=== PATIENT | female | born 1975 | race Two or more races ===

== ENCOUNTER 2016-10-16 15:46 | Emergency (ER) | payer OTHER ==
[~2016-10-16] VITALS: Ht 152.4 cm; Wt 56.7 kg
[2016-10-16] MEDS ORDERED: NKM (16:03)
[2016-10-16 16:11] VITALS: BP 139/79
[2016-10-16] MEDS ORDERED: Ketorolac 30mg Inj IV ONE (16:30)
[2016-10-16 16:50] LABS: BASOPHILS % (AUTO) 0.9 % (0.0-2.0); EOSINOPHILS % (AUTO) 0.3 % (0.0-3.0); LYMPHOCYTES % (AUTO) 13.3 % (20.0-45.0); MEAN CORPUSCULAR HEMOGLOBIN 29.7 PG (27.0-31.0); MEAN CORPUSCULAR HGB CONC 34.4 G/DL (32.0-36.0); MEAN CORPUSCULAR VOLUME 86 FL (80-99); MEAN PLATELET VOLUME 7.1 FL (6.5-10.1); MONOCYTES % (AUTO) 3.7 % (1.0-10.0); NEUTROPHILS % (AUTO) 81.8 % (45.0-75.0); PLATELET COUNT 270 K/UL (150-450); RED BLOOD COUNT 4.93 M/UL (4.20-5.40); RED CELL DISTRIBUTION WIDTH 11.8 % (11.6-14.8); WHITE BLOOD COUNT 11.2 K/UL (4.8-10.8)
[2016-10-16 16:54] LABS: APPEARANCE,URINE SLIGHTLY CLOUDY; KETONES,URINE NEGATIVE (NEGATIVE); LEUKOCYTE ESTERASE ,URINE NEGATIVE (NEGATIVE); NITRITE,URINE NEGATIVE (NEGATIVE); PH,URINE 5 (4.5-8.0); PROTEIN,URINE 2+ (NEGATIVE); UROBILINOGEN,URINE NORMAL MG/DL (0.0-1.0)
[2016-10-16 17:07] LABS: ALANINE AMINOTRANSFERASE 11 U/L (3-33); ALBUMIN/GLOBULIN RATIO 1.4 (1.0-2.7); ANION GAP 16 (5-15); ASPARTATE AMINO TRANSFERASE 13 U/L (5-40); CALCIUM 9.5 mg/dL (8.6-10.2); CARBON DIOXIDE 25 mEQ/L (20-30); CHLORIDE 96 mEQ/L (98-107); CREATININE 0.8 mg/dL (0.5-0.9); GLOMERULAR FILTRATION RATE > 60 mL/min (>60); HEMOLYSIS 7; LIPASE 27 U/L (< 60); POTASSIUM 4.1 mEQ/L (3.4-4.9); SODIUM 137 mEQ/L (135-145); TOTAL PROTEIN 7.4 g/dL (6.6-8.7)
--- NOTE | 2016-10-16 17:15 | Emergency Room Report ---
History of Present Illness General Chief Complaint: Female Urogenital Problems Source: Patient Present Illness HPI The patient states that around 1 PM today she developed right lower cough and abdominal pain radiating to her right back. She states the symptoms were sudden in onset. She states that prior to 1 PM she was feeling well. She denies recent illness. She denies fever chills. She did have a couple episodes of vomiting because she was having severe pain. She states that she is having normal bowel movements. She will be due for her menses this week. She denies dysuria or hematuria. She has no other complaints. Allergies: Coded Allergies: No Known Allergies (Unverified , 10/16/16) Patient History Past Medical History: see triage record, other - pancreatitis Past Surgical History: none Social History: Denies: alcohol use, drug use, smoking Last Menstrual Period: 09/20/2016 Now: No : 2 Para: 2 Reviewed Nursing Documentation: PMH: Agreed, PSxH: Agreed Nursing Documentation-PMH Past Medical History: No Stated History Hx Gastrointestinal Problems: Yes - Pancreatitis Review of Systems All Other Systems: negative except mentioned in HPI Physical Exam Vital Signs Date Time Temp Pulse Resp B/P Pulse Ox O2 Delivery O2 Flow Rate FiO2 10/16/16 15:56 98.4 81 16 120/79 100 Room Air Sp02 EP Interpretation: reviewed, normal General Appearance: no apparent distress, alert, GCS 15, non-toxic Head: normocephalic, atraumatic Eyes: bilateral eye PERRL, bilateral eye normal inspection ENT: hearing grossly normal, normal pharynx, no angioedema, normal voice Neck: full range of motion, supple/symm/no masses Respiratory: chest non-tender, lungs clear, normal breath sounds, speaking full sentences Cardiovascular #1: regular rate, rhythm, no edema Gastrointestinal: normal bowel sounds, soft, non-distended, no guarding, no rebound, tenderness - RLQ Rectal: deferred Musculoskeletal: back normal, gait/station normal, normal range of motion, non- tender Neurologic: alert, oriented x3, responsive, motor strength/tone normal, sensory intact, speech normal Psychiatric: judgement/insight normal, memory normal, mood/affect normal, no suicidal/homicidal ideation Skin: normal color, no rash, warm/dry, well hydrated Medical Decision Making Diagnostic Impression: Primary Impression: Abdominal pain Additional Impressions: Uterine fibroid Hematuria ER Course The patient presents with right lower quadrant pain. Laboratory workup to include CBC, CMP was noncontributory. Urinalysis did show positive for blood. Therefore, I felt this patient likely had a kidney stone him so a CT abdomen and pelvis was ordered which showed no e/o urolithiasis, but did show a uterine fibroid/mass. There is no evidence of appendicitis. The patient also had significant improvement in her symptoms with ibuprofen. Possibilities to include a passed kidney stone. Other considerations include pain related to the uterine fibroid. Regardless, the patient had significant improvement in her symptoms and her CT abdomen and pelvis is unremarkable. The patient is given close return precautions and followup instructions. Labs Test 10/16/16 16:35 White Blood Count 11.2 K/UL (4.8-10.8) Red Blood Count 4.93 M/UL (4.20-5.40) Hemoglobin 14.6 G/DL (12.0-16.0) Hematocrit 42.5 % (37.0-47.0) Mean Corpuscular Volume 86 FL (80-99) Mean Corpuscular Hemoglobin 29.7 PG (27.0-31.0) Mean Corpuscular Hemoglobin Concent 34.4 G/DL (32.0-36.0) Red Cell Distribution Width 11.8 % (11.6-14.8) Platelet Count 270 K/UL (150-450) Mean Platelet Volume 7.1 FL (6.5-10.1) Neutrophils (%) (Auto) 81.8 % (45.0-75.0) Lymphocytes (%) (Auto) 13.3 % (20.0-45.0) Monocytes (%) (Auto) 3.7 % (1.0-10.0) Eosinophils (%) (Auto) 0.3 % (0.0-3.0) Basophils (%) (Auto) 0.9 % (0.0-2.0) Urine Color Yellow Urine Appearance Slightly cloudy Urine pH 5 (4.5-8.0) Urine Specific [place] 1.025 (1.005-1.035) Urine Protein 2+ (NEGATIVE) Urine Glucose (UA) Negative (NEGATIVE) Urine Ketones Negative (NEGATIVE) Urine Occult Blood 3+ (NEGATIVE) Urine Nitrite Negative (NEGATIVE) Urine Bilirubin Negative (NEGATIVE) Urine Urobilinogen Normal MG/DL (0.0-1.0) Urine Leukocyte Esterase Negative (NEGATIVE) Urine RBC 10-15 /HPF (0 - 2) Urine WBC 2-4 /HPF (0 - 2) Urine Squamous Epithelial Cells Moderate /LPF (NONE/OCC) Urine Bacteria Many /HPF (NONE) Urine HCG, Qualitative Negative Sodium Level 137 mEQ/L (135-145) Potassium Level 4.1 mEQ/L (3.4-4.9) Chloride Level 96 mEQ/L (98-107) Carbon Dioxide Level 25 mEQ/L (20-30) Anion Gap 16 (5-15) Blood Urea Nitrogen 11 mg/dL (7-23) Creatinine 0.8 mg/dL (0.5-0.9) Estimat Glomerular Filtration Rate > 60 mL/min (>60) Glucose Level 106 mg/dL (74-106) Calcium Level 9.5 mg/dL (8.6-10.2) Total Bilirubin < 0.2 mg/dL (0.0-1.2) Aspartate Amino Transf (AST/SGOT) 13 U/L (5-40) Alanine Aminotransferase (ALT/SGPT) 11 U/L (3-33) Alkaline Phosphatase 70 U/L (35-104) Total Protein 7.4 g/dL (6.6-8.7) Albumin 4.4 g/dL (3.5-5.2) Globulin 3.0 g/dL Albumin/Globulin Ratio 1.4 (1.0-2.7) Lipase 27 U/L (< 60) CT/MRI/US Diagnostic Results CT/MRI/US Diagnostic Results : Imaging Test Ordered: CT abd/pelvis Impression R. uterine fundus mass/fibroid. See official results. Last Vital Signs Date Time Temp Pulse Resp B/P Pulse Ox O2 Delivery O2 Flow Rate FiO2 10/16/16 16:11 98.4 78 12 139/79 100 Room Air Disposition: HOME, SELF-CARE Condition: Improved ADELA BRENNAN D.O. Oct 16, 2016 17:15
[2016-10-16 17:19] LABS: BACTERIA,URINE MANY /HPF; SQUAMOUS EPITHELIAL CELL,UR MODERATE /LPF (NONE/OCC)
[2016-10-16] MEDS ORDERED: IBUPROFEN800 MG ORAL (18:30)
[2016-10-16 18:45] VITALS: BP 115/65
--- NOTE | 2016-10-17 10:43 | Diagnostic Imaging Report ---
Indications: Right flank pain Technique: Continuous helical CT imaging of the abdomen and pelvis was performed with automatic exposure control on a Siemens sensation [address] scanner. Axial, coronal, and sagittal images were reconstructed at 3 mm slice thickness. No oral or IV contrast was administered per protocol. CTDI volume(s): 13 mGy Total DLP: August 30 mGy-cm Findings: Comparison: None. 4 mm stone interpolar region right kidney. 2 mm stone lower pole region right kidney. No stone in left kidney, in either ureter, or within the urinary bladder. Bilateral renal collecting systems and ureters nondilated. No perinephric or periureteral stranding.. The appendix is unremarkable. The gastrointestinal tract is normal in caliber. No extraluminal gas or fluid collections are demonstrated. Lobulated contour of the uterine fundus. Remainder of visualized abdominopelvic anatomy demonstrates no other obvious abnormality, though lack of oral and IV contrast limits evaluation. Small irregular pleural-based linear densities in both lung bases.. No focal skeletal abnormalities demonstrated. IMPRESSION: Nonobstructive right nephrolithiasis. No evidence of ureterolithiasis, hydronephrosis, or hydroureter.. Unremarkable appendix -- no evidence of acute appendicitis. No other evidence of acute abdominopelvic disease. Lack of oral and IV contrast limits evaluation, however, and subtle abnormalities may be missed. Repeat CT scan with full oral and IV contrast preparation recommended for more complete evaluation, as clinically indicated. Uterine fundal mass/fibroid not excludable. Ultrasound correlation suggested. This correlates with Dr. Andrade's preliminary report. The CT scanner at [facility] is accredited by the [employer] and the scans are performed using protocols designed to limit radiation exposure to as low as reasonably achievable to attain images of sufficient resolution adequate for diagnostic evaluation.
== END 2016-10-16 18:45 | disposition home or self-care (01) ==
LOC: EMR 16:50
DX: R10.9 Unspecified abdominal pain (principal); D25.9 Leiomyoma of uterus, unspecified; R31.9 Hematuria, unspecified; R11.10 Vomiting, unspecified
CPT/HCPCS: 36415; 74176; 80053; 81003; 81025; 83690; 85025; 96360; 96374; 96375; 99284; J1885; J2405

== ENCOUNTER 2017-11-13 05:28 | Emergency (ER) | payer OTHER ==
[~2017-11-13] VITALS: Ht 162.6 cm; Wt 59.0 kg
[~2017-11-13 05:28] MED LIST: IBUPROFEN800 MG ORAL; NKM
[2017-11-13] MEDS ORDERED: Morphine Sulfate 4mg/ml Inj IVP ONE ×2 (06:00→06:30)
--- NOTE | 2017-11-13 06:03 | Emergency Room Report ---
History of Present Illness General Chief Complaint: Abdominal Pain Source: Patient Present Illness HPI Is a 42-year-old female with no past medical history. She presents with chief complaint of epigastric pain with nausea vomiting and diarrhea. Onset was 3 hours ago. It woke her up from sleep. Pain is 9 out of 10. No radiation. No fever chills. Vomiting's nonbloody nonbilious. Diarrhea is watery. Patient said some risk symptoms occurred 2 years ago when she was in [place]. The doctor there told her it was pancreatitis. She is not a drinker. No history of gallstone. Allergies: Coded Allergies: No Known Allergies (Unverified , 10/16/16) Patient History Past Medical History: see triage record, old chart reviewed Past Surgical History: other Pertinent Family History: none Social History: Denies: smoking Last Menstrual Period: 11/10/17 Now: No Immunizations: other Reviewed Nursing Documentation: PMH: Agreed, PSxH: Agreed Nursing Documentation-PMH Past Medical History: No History, Except For Hx Gastrointestinal Problems: Yes - Pancreatitis Review of Systems Eye: Denies: eye pain, blurred vision ENT: Denies: ear pain, nose congestion, throat swelling Respiratory: Denies: cough, shortness of breath Cardiovascular: Denies: chest pain, palpitations Gastrointestinal: Reports: abdominal pain, diarrhea, nausea, vomiting Musculoskeletal: Denies: back pain, joint pain Skin: Denies: rash Neurological: Denies: headache, numbness Endocrine: Denies: increased thirst, increased urine Hematologic/Lymphatic: Denies: easy bruising All Other Systems: negative except mentioned in HPI Physical Exam Vital Signs Date Time Temp Pulse Resp B/P (MAP) Pulse Ox O2 Delivery O2 Flow Rate FiO2 11/13/17 05:31 97.8 60 16 121/78 99 Room Air 97.9 vitals normal Sp02 EP Interpretation: reviewed, normal General Appearance: well appearing, no apparent distress, alert Head: normocephalic, atraumatic Eyes: bilateral eye PERRL, bilateral eye EOMI ENT: hearing grossly normal, normal pharynx Neck: full range of motion, supple, no meningismus Respiratory: chest non-tender, lungs clear, normal breath sounds Cardiovascular #1: regular rate, rhythm, no murmur Gastrointestinal: normal bowel sounds, no mass, no organomegaly, no bruit, non- distended, tenderness - mild epigastric. No right upper quadrant or LUQ pain Musculoskeletal: back normal, gait/station normal, normal range of motion Psychiatric: mood/affect normal Skin: warm/dry Medical Decision Making Diagnostic Impression: Primary Impression: Abdominal pain Qualified Codes: R10.13 - Epigastric pain ER Course Patient with abdominal pain. Labs and CT scan pending. Will sign this patient out to Dr. Sagastume for final disposition. Last Vital Signs Date Time Temp Pulse Resp B/P (MAP) Pulse Ox O2 Delivery O2 Flow Rate FiO2 11/13/17 05:31 97.8 60 16 121/78 99 Room Air 97.9 Status: improved Referrals: CITLALLI MONCADA,REFERRING (PCP) SELWYN SAENZ M.D. Nov 13, 2017 06:03
[2017-11-13 07:03] LABS: BASOPHILS % (AUTO) 1.1 % (0.0-2.0); EOSINOPHILS % (AUTO) 0.7 % (0.0-3.0); HEMATOCRIT 40.8 % (37.0-47.0); HEMOGLOBIN 13.9 G/DL (12.0-16.0); MEAN CORPUSCULAR VOLUME 86 FL (80-99); MONOCYTES % (AUTO) 4.4 % (1.0-10.0); NEUTROPHILS % (AUTO) 63.8 % (45.0-75.0); PLATELET COUNT 238 K/UL (150-450); RED BLOOD COUNT 4.75 M/UL (4.20-5.40); RED CELL DISTRIBUTION WIDTH 11.2 % (11.6-14.8); WHITE BLOOD COUNT 7.1 K/UL (4.8-10.8)
[2017-11-13 07:07] LABS: ANION GAP 10 mmol/L (5-15); BLOOD UREA NITROGEN 14 mg/dL (7-18); CARBON DIOXIDE 24 MMOL/L (21-32); CHLORIDE 105 MMOL/L (98-107); CREATININE 0.8 MG/DL (0.55-1.30); POTASSIUM 3.7 MMOL/L (3.5-5.1); SODIUM 139 MMOL/L (136-145)
[2017-11-13 07:13] LABS: ALANINE AMINOTRANSFERASE 25 U/L (12-78); ALBUMIN 3.8 G/DL (3.4-5.0); ALKALINE PHOSPHATASE 87 U/L (46-116); ASPARTATE AMINO TRANSFERASE 17 U/L (15-37); BILIRUBIN,TOTAL 0.2 MG/DL (0.2-1.0)
[2017-11-13] MEDS ORDERED: LR 1000ml 1,000 ML IV STA (07:34)
[2017-11-13] MEDS ORDERED: LORazepam Inj 2mg/ml 1ml IV ONE (07:45)
[2017-11-13 07:58] LABS: APPEARANCE,URINE TURBID; BILIRUBIN, URINE NEGATIVE (NEGATIVE); COLOR,URINE PALE YELLOW; GLUCOSE, URINE (UA) NEGATIVE (NEGATIVE); KETONES,URINE NEGATIVE (NEGATIVE); LEUKOCYTE ESTERASE ,URINE 1+ (NEGATIVE); NITRITE,URINE NEGATIVE (NEGATIVE); PH,URINE 5 (4.5-8.0); PROTEIN,URINE NEGATIVE (NEGATIVE); UROBILINOGEN,URINE NORMAL MG/DL (0.0-1.0)
[2017-11-13 08:23] VITALS: BP 97/57
[2017-11-13] MEDS ORDERED: ZOFRAN ODT4 MG ORAL (08:28)
[2017-11-13] MEDS ORDERED: PEPCID20 MG ORAL (08:28)
[2017-11-13] MEDS ORDERED: DiphenhydrAMINE 50mg/ml Inj IVP ONE (10:15)
--- NOTE | 2017-11-13 11:34 | Diagnostic Imaging Report ---
Clinical Indication: 42-year-old female with epigastric pain, nausea, vomiting and diarrhea x3 hours Technique: No oral contrast utilized, per emergency room physician request IV administration nonionic contrast. Venous phase spiral acquisition obtained through the abdomen and pelvis. Multiplanar reconstructions were generated. Total dose length product 827.29 mGycm. CTDIvol(s) 15.47 mGy. Dose reduction achieved using automated exposure control Comparison: 10/16/2016 Findings: Lack of enteric contrast limits assessment of the GI tract. There are a few colonic diverticula. No evidence of diverticulitis. The appendix is normal. No small bowel distention. No free or loculated intraperitoneal air or fluid is evident. The distal esophagus, stomach, duodenum are grossly unremarkable. Within the uncinate process of the pancreas, there is a 1 cm ill-defined low-attenuation lesion. Within the body of the pancreas, image 29 of series 3, there is a 6 mm likewise ill-defined low-attenuation lesion. At the body tail junction, image 26 series 3, another ill-defined area of low-attenuation measuring 15 mm in diameter is demonstrated. The pancreatic duct is not dilated. These are equivocally present previously in retrospect, more conspicuous currently due to the use of IV contrast The liver, gallbladder, bile ducts are unremarkable. The spleen, adrenals, left kidney are unremarkable. 2 punctate nonobstructive calculi are seen in the right renal collecting system. No retroperitoneal or mesenteric mass or adenopathy. No pelvic mass or adenopathy. Uterus and ovaries are unremarkable. Included lung bases demonstrate drape posterior dependent atelectatic changes. The bones are unremarkable Impression: Limited assessment of the GI tract in the absence of IV contrast. No definite acute abnormality Multiple low-attenuation lesions within the pancreas. These are nonspecific. Possibly sequelae of prior inflammation, cystic lesions also a possibility. Possibly evident on prior exam of 10/16/2016, in retrospect, but more conspicuous currently. Recommend further workup with pancreas protocol contrast MRI Colonic diverticulosis. No evidence of diverticulitis Nonobstructive right renal calculi, also described on prior exam of 10/16/2016. Findings discussed by phone with Dr. Sagastume in the emergency room at the time of interpretation The CT scanner at [facility] is accredited by the [employer] and the scans are performed using protocols designed to limit radiation exposure to as low as reasonably achievable to attain images of sufficient resolution adequate for diagnostic evaluation.
[2017-11-13 11:50] VITALS: BP 112/60
--- NOTE | 2017-11-14 15:59 | Cardiology Report ---
APPROVED REPORT EKG Measurement Heart [id number] Normal sinus rhythm Normal ECG
== END 2017-11-13 11:52 | disposition home or self-care (01) ==
LOC: EMR 05:41 → CANBEDREQ 11:47 → EMR 11:52
DX: R10.13 Epigastric pain (principal); R11.2 Nausea with vomiting, unspecified; R19.7 Diarrhea, unspecified; N20.0 Calculus of kidney; K57.30 Diverticulosis of large intestine without perforation or abscess without bleeding
CPT/HCPCS: 36415; 74177; 80053; 80307; 81003; 81025; 83690; 84484; 85025; 93005; 96361; 96374; 96375; 99284; J0780; J1200; J2270; J2405; J7120; Q9967